=== PATIENT | female | born 1940 | race Caucasian/White ===

== ENCOUNTER 2022-11-30 10:28 | Outpatient (CLI) | payer MEDICARE, BC, SELFPAY ==
[2022-11-30 15:20] LABS: Chloride* 106 mmol/L (96-114); Potassium* 4.9 mmol/L (3.6-5.1); Sodium* 140 mmol/L (135-149)
[2022-11-30 15:23] LABS: Blood Urea Nitrogen* 22 mg/dL (7-30); Carbon Dioxide* 30 mmol/L (20-32); Cholesterol* 198 mg/dL (90-199); Creatinine* 0.6 mg/dL (0.5-1.5); Estimated Glomerular Filt Rate 90 ml/min; Glucose* 90 mg/dL (60-115); Triglycerides* 101 mg/dL (40-149)
[2022-11-30 15:24] LABS: HDL Cholesterol* 73 mg/dL (>=50); LDL Cholesterol Calculated 105 mg/dL (<100)
[2022-11-30 16:22] LABS: Free T4 Free Thyroxine* 1.11 ng/dL (0.70-1.85)
== END 2022-11-30 10:29 | disposition home or self-care (01) ==
PROVIDERS: PCP Emergency Medicine; Visit Provider Emergency Medicine
DX: Z00.00 Encounter for general adult medical examination without abnormal findings (principal); E03.9 Hypothyroidism, unspecified; M81.0 Age-related osteoporosis without current pathological fracture; Z13.6 Encounter for screening for cardiovascular disorders; Z13.1 Encounter for screening for diabetes mellitus
CPT/HCPCS: 80048; 80061; 84439; 84443

== ENCOUNTER 2023-02-22 09:01 | Outpatient (CLI) | payer MEDICARE, BC, SELFPAY | END 2023-02-22 09:02 | disposition home or self-care (01) | LOC: NFLDREF 02-23 00:39 | PROVIDERS: PCP Emergency Medicine; Referring Provider Emergency Medicine; Visit Provider Emergency Medicine | DX: E03.9 Hypothyroidism, unspecified (principal) | CPT/HCPCS: 84443 ==

== ENCOUNTER 2023-12-05 08:32 | Outpatient (CLI) | payer MEDICARE, BC, SELFPAY | END 2023-12-05 08:33 | disposition home or self-care (01) | PROVIDERS: PCP Emergency Medicine; Visit Provider Emergency Medicine | DX: Z00.00 Encounter for general adult medical examination without abnormal findings (principal); E03.9 Hypothyroidism, unspecified; Z13.6 Encounter for screening for cardiovascular disorders; Z13.1 Encounter for screening for diabetes mellitus | CPT/HCPCS: 80048; 80061; 84443 ==

== ENCOUNTER 2024-04-18 11:34 | Outpatient (CLI) | payer MEDICARE, BC, SELFPAY ==
--- NOTE | 2024-04-18 11:30 | CRLHL7_ITS ---
For Patients: As a result of the Century Cures Act, medical imaging exams and procedure reports are released immediately into your electronic medical record. You may view this report before your referring provider. If you have questions, please contact your health care provider. BILATERAL SCREENING MAMMOGRAM WITH COMPUTER-AIDED DETECTION AND TOMOSYNTHESIS TECHNIQUE: CC and MLO views were obtained. These mammographic images have been obtained using full-field digital technique. These mammographic images were interpreted with the benefit of computer-aided detection. Breast Tomosynthesis was used in this interpretation. COMPARISON FILM: 04/17/23, 03/15/22, 03/08/21. FINDINGS: The breasts are heterogeneously dense, which may obscure small masses. IMPRESSION: There is no radiographic evidence for malignancy. ASSESSMENT: BI-RADS Category 2: Benign RECOMMENDATION: Routine screening mammogram in 1 year. A lay language report of this examination will be provided to the patient. Sin Ware M.D. Diagnostic Radiologist [email or web address] SP/Dictated by: Sin Ware MD @ 04/21/2024 9:36:00 AM (Electronically Signed)
== END 2024-04-18 11:35 | disposition home or self-care (01) ==
LOC: MAMMO 11:35
PROVIDERS: PCP Emergency Medicine; Visit Provider Emergency Medicine
DX: Z12.31 Encounter for screening mammogram for malignant neoplasm of breast (principal); R92.2 Inconclusive mammogram
CPT/HCPCS: 77063; 77067